=== PATIENT | female | born 1955 | race Caucasian/White ===

== ENCOUNTER 2018-06-01 09:53 | Inpatient (IN) ==
[2018-06-01] MEDS ORDERED: NS 1,000 ML IV ONE ×2 (10:10→16:46)
--- NOTE | 2018-06-01 10:10 | EKG Report ---
Test Performed on : 06/01/2018 10:07:44 AM Test Reason : AMS Blood Pressure : / mmHG Vent. Rate : 122 BPM Atrial Rate : 122 BPM P-R Int : 148 ms QRS Dur : 070 ms QT Int : 342 ms P-R-T Axes : 074 -03 049 degrees QTc Int : 487 ms Sinus tachycardia. with premature supraventricular complexes. and fusion complexes Possible Left atrial enlargement Borderline ECG No previous ECGs available Unconfirmed Result
[2018-06-01] MEDS ORDERED: ATIVAN IV ONE ×2 (10:19→14:16)
[2018-06-01] MEDS ORDERED: M.V.I.-12 10 ML, FOLIC ACID 1 MG, MAGNESIUM SULFATE 1 GM, THIAMINE 100 MG in NS 1,000 ML IV ONE (10:19)
[2018-06-01] MEDS ORDERED: ZOFRAN IV ONE (10:26)
--- NOTE | 2018-06-01 10:29 | Diag Imaging Result Doc PS360 ---
EXAM: CHEST-1 VIEW HISTORY: ams TECHNIQUE: Chest single view COMPARISON: 10/13/2013 FINDINGS: The lungs are well expanded. The heart is not enlarged. The vessels are not distended. There are no infiltrates. No effusion identified. IMPRESSION: Negative exam. Electronically signed by Naman Franks 06/01/2018 10:27 AM
[2018-06-01 10:41] LABS: BASO# 0.04 X1000 (0.0-0.2); BASO% 0.5 % (0.0-0.8); HEMOGLOBIN 15.2 g/dL (12.0-16.0); IMM GRAN# 0.03 X1000 (0.0-0.04); IMM GRAN% 0.3 % (0.0-0.5); LYMPH# 0.51 X1000 (1.2-3.4); LYMPH% 5.9 % (20.5-51.1); MCH 29.9 PG (27-31); MCHC 35.3 g/dL (33-37); MCV 84.6 FL (81-99); MONO# 0.25 X1000 (0.11-0.59); MONO% 2.9 % (1.7-9.3); MPV 8.8 FL (7.4-10.4); NEUT# 7.78 X1000 (1.4-6.5); NEUT% 90.4 % (42.2-75.2); PLT 293 X1000 (130-400); RBC 5.08 XMIL (4.2-5.4); RDW 16.4 % (11.5-14.5); WBC 8.61 X1000 (4.8-10.8)
[2018-06-01 10:51] LABS: AGAP 19; ALB/GLOB RATIO 1.4; ALBUMIN 4.9 g/dL (3.5-5.0); ALKALINE PHOSPHATASE 91 U/L (32-104); BUN 14 mg/dL (8-22); CALCIUM 9.5 mg/dL (8.8-10.2); CHLORIDE 98 mmol/L (98-107); COSMO 283; CREATININE 0.6 mg/dL (0.5-0.9); ESTIMATED GFR > 60; GLUCOSE 147 mg/dL (70-104); GOT 36 U/L (10-30); GPT 23 U/L (10-36); POTASSIUM 4.3 mmol/L (3.5-5.1); SODIUM 140 mmol/L (136-145); TCO2 23 mmol/L (25-35); TOTAL BILIRUBIN 0.88 mg/dL (0.20-1.00); TOTAL PROTEIN 8.5 g/dL (6.3-8.3)
[2018-06-01 11:22] LABS: ALLEN TEST YES; BE -0.1 mmoll (-3.0-3.0); BLOOD TYPE ARTERIAL; HCO3-(ACT) 24.7 mmoll (20.0-26.0); O2(CT) 20.1 mL/dL (15.0-23.0); O2HB 94.3 % (95.0-99.0); PCO2(98.6) 27 mmHg (35-45); PO2(98.6) 93 mmHg (60-100); SAMPLE BLOOD; SAO2 96.5 % (95.0-100.0); THB 15.1 g/dL (11.5-17.4); pH(98.6) 7.51 (7.35-7.45)
[2018-06-01 11:23] LABS: MODALITY ROOM AIR
[2018-06-01 12:08] LABS: URINE SOURCE CLEAN CATCH
[2018-06-01 12:17] LABS: BILIRUBIN URINE NEGATIVE (NEGATIVE); BLOOD URINE MODERATE (NEGATIVE); COLOR YELLOW; GLUCOSE URINE TRACE mg/dL (NEGATIVE); KETONE URINE 60 mg/dL (NEGATIVE); LEUKOCYTES URINE NEGATIVE (NEGATIVE); NITRITE URINE NEGATIVE (NEGATIVE); PH URINE 6.5; PROTEIN URINE >600 mg/dL (NEGATIVE); SP GRAVITY URINE 1.026; TURBIDITY URINE CLEAR (CLEAR); UROBILINOGEN URINE NORMAL (NORMAL)
[2018-06-01 12:21] LABS: UR EPITHELIAL CELLS <10 /HPF (<10); URINE BACTERIA NEGATIVE /HPF; URINE RBC <10 /HPF (<10); URINE WBC <10 /HPF (<10)
--- NOTE | 2018-06-01 13:50 | Diag Imaging Result Doc PS360 ---
EXAM: CT HEAD W/O CONTRAST 06/01/2018 HISTORY: tremor/confusion TECHNIQUE: This exam was performed using automated exposure control, adjustment of mA or kV according to patient size, and/or use of iterative reconstruction technique. COMMENT: There is no evidence of mass effect, bleed, abnormal extra-axial fluid collection, or hydrocephalus. The visualized paranasal sinuses are clear. The calvarium is intact. IMPRESSION: No evidence of acute intracranial disease. Electronically signed by Marc June 06/01/2018 1:48 PM
[2018-06-01] MEDS ORDERED: NS 500 ML IV ONE (16:06)
--- NOTE | 2018-06-01 17:48 | PROVIDER DOCUMENTATION ---
This chart was entered by Tiffani Kaur Scribe, acting as scribe for Jose Francisco Go MD. HPI-General Adult - General Chief Complaint: Altered Mental Status Stated Complaint: TREMORS, AMS/DR BROWN REF Time Seen by Provider: 06/01/18 10:06 Source: patient, family Allergies/Adverse Reactions: Patient Allergies Allergy/AdvReac Type Severity Reaction Status Date / Time No Known Allergies Allergy Unverified 04/27/12 15:53 Home Medications: Home Medication List Medication Instructions Recorded Confirmed Last Taken Type Fenofibrate [Tricor] 48 mg PO DAILY 04/28/12 04/28/12 Unknown History Metformin [Glucophage] 500 mg PO DAILY 04/28/12 04/28/12 Unknown History Paroxetine HCl [Paxil] 40 mg PO DAILY 04/28/12 04/28/12 Unknown History Chlordiazepoxide [Librium] 25 mg PO TID@0900,1500,2100 #0 04/30/12 Unknown Rx capsule - History of Present Illness -Gen Adult Nature of Presenting Problems: Patient is a 63 year old female who presents with tremors that have been present since last night. Patient's family states patient has been confused for the last week. Family also reports patient has possibly not been taking her daily medications. Report patient drinks 3 beers daily but has not within the last 3 days due to sleeping all the time. Denies weakness, numbness and tingling to all extremities. Location of Pain/Injury: reports: none Pain Radiation: reports: no radiation Quality of Pain: reports: none Severity: reports: mild Onset/Duration: reports: last night Timing: reports: still present Context/Activities at Onset: reports: light activity Associated Symptoms: reports: other (tremors) Similar Symptoms Previously?: Yes (present since last night ) Recently seen or treated by another doctor?: No Review of Systems - Adult - REVIEW OF SYSTEMS - ADULT Constitutional: reports: no symptoms reported. denies: chills, fever, fatique Eyes: reports: no symptoms reported Ears, Nose, Mouth & Throat: reports: no symptoms reported Cardiovascular: reports: no symptoms reported Respiratory: reports: no symptoms reported Gastrointestinal: reports: no symptoms reported Genitourinary: reports: no symptoms reported. denies: dysuria, frequency, hematuria Musculoskeletal: reports: back pain. denies: muscle aches, neck pain Integumentary: reports: no symptoms reported Neurological: reports: see HPI, tremors. denies: dizziness/vertigo, headache/migraines, numbness, paresthesia, seizure, syncope Psychiatric: reports: no symptoms reported Endocrine: reports: no symptoms reported Hematologic/Lymphatic: reports: no symptoms reported Allergic/Immunologic: reports: no symptoms reported All Other Systems: Reviewed and Negative Past History - Adult - PAST MEDICAL HISTORY-ADULT Review of Records: reports: Nursing Assessment Review, Medications Reviewed, Social history reviewed & non-contributory. Major Childhood Illnesses: reports: denies history Cardiovascular: reports: HTN Respiratory: reports: denies history Gastrointestinal: reports: denies history Obstetrical/Gynecological: reports: denies history Genitourinary: reports: denies history Musculoskeletal: reports: denies history Neurological: reports: denies history Psychiatric: reports: denies history Endocrine/Immune: reports: Diabetes Other Conditions: reports: denies history - PRIOR SURGERIES/PROCEDURES Surgical/Procedure History: reports: reviewed, not pertinent - IMMUNIZATION STATUS Childhood Immunizations: See Nurse Assessment Flu Vaccine: See Nurse Assessment - FAMILY HISTORY Family History: reviewed, not pertinent - SOCIAL HISTORY Smoking: cigarettes, greater than 1 pack/day Provider spent 3-5 mins advising pt. on dangers of tobacco.: Discussed manners to quit use, and f/u contacts for add'l counseling. Substance Use: alcohol Alcohol Use Frequency: every day Number of drinks per typical drinking period:: 3-4 drinks Living Situation: family Physical Exam-General - PHYSICAL EXAM-ADULT Initial Vital Signs Reviewed: Yes - CONSTITUTIONAL General Appearance: alert, no apparent distress. negative: lethargic, slow to respond - EYES Eyes: PERRL/EOMI - HEAD, EARS, NOSE, MOUTH & THROAT HENMT: normocephalic/atraumatic, moist mucous membranes - NECK Neck: non-tender, full range of motion, supple, normal inspection - RESPIRATORY Respiratory: chest non-tender, lungs clear, normal breath sounds. negative: c rackles, rhonchi - CARDIOVASCULAR Cardiovascular: normal peripheral pulses, tachycardia. negative: systolic murmur - GASTROINTESTINAL (ABDOMEN) Abdominal Exam: normal bowel sounds, non tender, soft. negative: guarding, rebound - MUSCULOSKELETAL Extremity: non-tender, normal inspection. negative: deformity, erythema - SKIN Integumentary: normal color, normal turgor, warm/dry. negative: cyanosis, ecchymosis, jaundice - NEUROLOGIC Neurologic: grossly normal. negative: aphasia, facial droop - PSYCHIATRIC Psych/Mental Status: normal mood/affect, oriented x 3. negative: paranoid, tear ful Progress - PLAN OF CARE/RESULTS Progress/Plan/Lab Results: Vital Signs - 8 hr 06/01/18 09:56 Temperature 98.1 F Pulse Rate 112 H Respiratory Rate 18 Blood Pressure 172/92 O2 Sat by Pulse Oximetry 97 Laboratory Results - last 24 hr 06/01/18 10:00 POC Glucose 131 H D Orders Category Date Time Status CHEST-1 VIEW [RAD] Stat Exams 06/01/18 10:09 Ordered ALCOHOL BLOOD Stat Lab 06/01/18 10:18 Ordered CBC WITH ELECTRONIC DIFF [HEME] Stat Lab 06/01/18 10:18 Ordered COMPREHENSIVE METABOLIC PANEL [CHEM] Stat Lab 06/01/18 10:18 Ordered TROPONIN T Stat Lab 06/01/18 10:18 Ordered UA [URINALYSIS] [URINALYSIS] Stat Lab 06/01/18 10:07 Uncollected 0.9% Sodium Chloride Inj [Ns] 1,000 ml Med 06/01/18 10:10 Active IV 999 mls/hr Banana Bag X1 Bag Over 1 Hour Med 06/01/18 10:19 Ordered Mvi [M.v.i.-12] 10 ml Folic Acid 1 mg Magnesium Sulfate 1 gm Thiamine 100 mg 0.9% Sodium Chloride Inj [Ns] 1,000 ml IV NOW EKG [EKG] Stat Ther 06/01/18 10:05 Draft EKG [EKG] Stat Ther 06/01/18 10:09 Ordered Result Diagrams: 06/01/18 10:15 06/01/18 10:15 - REASSESSMENT Reassessment #1 Time Reassessed: 13:03 Status: other (Dr. Go reassessed patient and patient's IV line was clamped off and patient had not received fluids yet.) - EKG 1 Time of EKG reading by physician:: 10:07 EKG Read and Signed by:: Jose Francisco oG EKG Interpretation (*Must complete 3 of following elements*): Abnormal (rhythm - sinus tachycardia with premature supraventricular complexes and fusion complexes) Rate: 122 [place] Interval: normal Comments: possible left atrial enlargement - XRAY 1 XRAY Study: Chest Impression: See EMR Report (Signed EXAM: CHEST-1 VIEW HISTORY: ams TECHNIQUE: Chest single view COMPARISON: 10/13/2013 FINDINGS: The lungs are well expanded. The heart is not enlarged. The vessels are not distended. There are no infiltrates. No effusion identified. IMPRESSION: Negative exam. Electronically signed by Naman Franks 06/01/2018 10:27 AM 06/01/18 1027 Interpreting Physician: Naman Franks MD Dictated Date/Time: 06/01/18 1027 cc: Jose Francisco Go MD; Devin Brown MD) - CT/MRI 1 CT Study: Head Impression: See EMR Report ( EXAM: CT HEAD W/O CONTRAST 06/01/2018 HISTORY: tremor/confusion TECHNIQUE: This exam was performed using automated exposure control, adjustment of mA or kV according to patient size, and/or use of iterative reconstruction technique. COMMENT: There is no evidence of mass effect, bleed, abnormal extra-axial fluid collection, or hydrocephalus. The visualized paranasal sinuses are clear. The calvarium is intact. IMPRESSION: No evidence of acute intracranial disease. Electronically signed by Marc June 06/01/2018 1:48 PM 06/01/18 1348 Interpreting Physician: Marc June MD Dictated Date/Time: 06/01/18 1346 cc: Jose Francisco Go MD; Devin Brown MD) - CONSULTS/PCP/HOSPITALIST Notification #1 *Consult/PCP/Hospitalist*: Dr. Hood Time Discussed: 17:46 Reason/Comments: Dr. Go consulted with Dr. Hood about patient Consult Disposition: Admit Departure - Departure Date of Disposition Decision: 06/01/18 Time of Disposition Decision: 16:49 DIAGNOSIS: Dehydration, Alcohol abuse Disposition: ADMITTED INPATIENT 09 Certified Medical Emergency: Emergent Condition: Fair Referrals and Follow-Ups: Devin Brown MD [Primary Care Provider] - - Critical Care Note This patient required my direct & personal management of CC.: No Attestation - Physician/ JAGDISH Attestation Patient care was provided by Advanced Practice Provider:: No The physician spent face to face time with patient:: Yes Advanced Practice Provider documentation review:: Supervising physician onsite and consulted in the evaluation and care of this patient. The physician did have a face to face encounter with the patient. This chart was documented by the indicated scribe, (Tiffani Kaur, Carm[place]) and accurately reflects the services I performed and decisions made by me, Jose Francisco Go MD, as attested by the provider's signature.
[2018-06-01 20:41] LABS: UR AMPHETAMINES QUAL NONE DETECTED (NONE DETECT); UR BARBITUATES QUAL NONE DETECTED (NONE DETECT); UR BENZODIAZEPIN QUAL PRESUMPTIVE POSITIVE (NONE DETECT); UR CANNABINOIDS QUAL NONE DETECTED (NONE DETECT); UR COCAINE QUAL NONE DETECTED (NONE DETECT); UR METHADONE QUAL NONE DETECTED (NONE DETECT); UR OPIATES QUAL NONE DETECTED (NONE DETECT); UR OXYCODONE QUAL NONE DETECTED (NONE DETECT); UR PCP QUAL NONE DETECTED (NONE DETECT)
[2018-06-01 20:46] LABS: MAGNESIUM 1.8 mg/dL (1.5-2.7); PHOSPHORUS 3.1 mg/dL (2.7-4.5)
--- NOTE | 2018-06-01 21:44 | HISTORY AND PHYSICAL ---
PRIMARY CARE PHYSICIAN: Dr. Martinez. CHIEF COMPLAINT: Shaking tremors for 1 day. HISTORY OF PRESENTING ILLNESS: 63-year-old female with a history of hypertension, diabetes mellitus type 2, and anxiety disorder had presented to the emergency department with 1-day history of having tremors and shaking symptoms. The patient seemed somewhat confused. Apparently, patient has a history of chronic alcoholism and her last drink was few days ago. The patient was also on Xanax for anxiety for years and apparently ran out of it about a week ago. She was seen in the ER. She seemed to have tremors and clinically it seemed that she was in alcohol withdrawal. Due to her presenting symptoms, she will require admission for further management. At the time of my examination, patient denied any headache, fever, chills, chest pain, shortness of breath or any weight changes but complained of shaking. PAST MEDICAL HISTORY: Includes hypertension, diabetes mellitus type 2, anxiety disorder. PAST SURGICAL HISTORY: None. ALLERGIES: No known drug allergies. CURRENT MEDICATIONS: Include Librium 25 mg p.o. t.i.d., Tricor 48 mg p.o. daily, metformin 500 mg p.o. daily, Paxil 40 mg p.o. daily. SOCIAL HISTORY: Twenty pack years history of smoking. Admits to drinking beer and vodka daily. Denies any illicit drug use. FAMILY HISTORY: No history of coronary disease. REVIEW OF SYSTEMS: Fourteen point review of systems is as in HPI. Other systems negative. PHYSICAL EXAMINATION: GENERAL: Cooperative, friendly female. She is resting more comfortably now. VITAL SIGNS: Temperature 98.1 degrees, pulse 112, respiration 18, blood pressure 172/92. HEENT: Atraumatic, normocephalic. Extraocular movements intact. PERRLA. NECK: No masses. CHEST: Clear to auscultation. CARDIOVASCULAR: Regular rate and rhythm. ABDOMEN: Soft. Positive bowel sounds. EXTREMITIES: No edema. NEUROLOGIC: She is awake, alert, oriented x2. : No bladder distention. SKIN: Warm. LABORATORIES AND STUDIES: Sodium 140, potassium 4.3, chloride 98, CO2 is 23, BUN is 14, creatinine 0.6, glucose is 147. WBC 8.61, hemoglobin 15.2, hematocrit 43.0, platelets 293,000. ASSESSMENT: This is a 63-year-old female with a history of hypertension, diabetes mellitus type 2, and chronic alcoholism who had presented to emergency department with 1-day history of having tremors and shaking sensation. She apparently quit drinking alcohol about several days ago and also had ran out of her Xanax about a week ago. I seemed that clinically she was in withdrawal. Subsequently she will need admission for further management. 1. Alcohol/Xanax withdrawal. 2. Hypertension. 3. Diabetes mellitus type 2. PLAN: 1. We will admit patient to medical floor with telemetry. 2. Continue with supportive treatment with IV fluids, antiemetics, and benzodiazepines as needed. 3. We will monitor blood pressure closely. 4. Put patient on glycemic protocol and monitor blood glucose. 5. Put patient on DVT prophylaxis with SCDs. 6. We will continue to follow and reassess. Make further recommendation based on patient's clinical course. cc: Shakir Méndez MD
[2018-06-01] MEDS ORDERED: ATIVAN IV PRN (23:02)
[2018-06-01] MEDS ORDERED: ZOFRAN IV PRN (23:02)
[2018-06-01] MEDS ORDERED: SODIUM CHLORIDE 0.9% INJ SCH (23:15)
[2018-06-01] MEDS: TYLENOL PO PRN (23:24)
[2018-06-01] MEDS: LIBRIUM PO SCH (23:24)
[2018-06-01] MEDS: NS 1,000 ML IV SCH (23:24)
[2018-06-01] MEDS: PROTONIX IV SCH (23:24)
[2018-06-02 07:22] LABS: BASO# 0.03 X1000 (0.0-0.2); BASO% 0.5 % (0.0-0.8); EOS# 0.01 X1000 (0.0-0.7); EOS% 0.2 % (0.0-10.0); HEMATOCRIT 38.6 % (37.0-47.0); HEMOGLOBIN 13.6 g/dL (12.0-16.0); LYMPH# 1.14 X1000 (1.2-3.4); MCH 30.6 PG (27-31); MCHC 35.2 g/dL (33-37); MCV 86.7 FL (81-99); MONO# 0.69 X1000 (0.11-0.59); MONO% 10.9 % (1.7-9.3); NEUT# 4.48 X1000 (1.4-6.5); NEUT% 70.4 % (42.2-75.2); PLT 241 X1000 (130-400); RBC 4.45 XMIL (4.2-5.4); RDW 16.4 % (11.5-14.5); WBC 6.35 X1000 (4.8-10.8)
[2018-06-02 07:59] LABS: AGAP 9; BUN 15 mg/dL (8-22); CALCIUM 8.8 mg/dL (8.8-10.2); CHLORIDE 99 mmol/L (98-107); COSMO 271; CREATININE 0.5 mg/dL (0.5-0.9); ESTIMATED GFR > 60; GLUCOSE 94 mg/dL (70-104); POTASSIUM 3.7 mmol/L (3.5-5.1); SODIUM 135 mmol/L (136-145); TCO2 27 mmol/L (25-35)
[2018-06-02] MEDS: PRINZIDE 20/12.5MG PO SCH (09:16)
[2018-06-02] MEDS: PAXIL PO SCH (09:16)
[2018-06-02] MEDS: LIBRIUM PO SCH ×3 (09:25→21:51)
[2018-06-02] MEDS: NS 1,000 ML IV SCH ×2 (09:26→23:33)
[2018-06-02] MEDS: TYLENOL PO PRN (14:36)
--- NOTE | 2018-06-02 16:32 | PROGRESS NOTE ---
DATE: 06/02/2018 SUBJECTIVE: Patient is resting in bed. She is tremulous. OBJECTIVE: Vital signs: Temperature 98.7 degrees, pulse 98, respiratory rate 17, blood pressure 160/80, oxygen saturation is 96%. HEENT: Atraumatic, normocephalic. Cardiovascular: S1, S2. Respiratory: Has evidence of good entry bilaterally. Abdomen: Soft, nontender. No masses felt. Extremities: No evidence of significant edema. Central Nervous System: The patient is awake, alert, and experiencing tremors. LABORATORY DATA: WBC 6.35, hematocrit is 38.6, with a platelet count of 241,000. Sodium is 135, potassium 3.7, chloride 99, bicarb 27, BUN is 15, creatinine 0.5. ASSESSMENT AND PLAN: 1. Delirium tremens/alcohol withdrawal. Maintain patient on DT prophylaxis along with time and also folic acid. Check the patient's magnesium and phosphorus level, and replace those if needed. 2. Hypertension. Continue current antihypertensive regimen. 3. Diabetes mellitus. Maintain patient's blood sugar monitoring as well as sliding scale insulin. Check hemoglobin A1c level. 4. Deep vein thrombosis prophylaxis. SCDs. cc: Braydon Trevizo MD
[2018-06-02] MEDS: PROTONIX IV SCH (23:34)
[2018-06-03 07:44] LABS: BASO# 0.05 X1000 (0.0-0.2); BASO% 1.1 % (0.0-0.8); EOS# 0.05 X1000 (0.0-0.7); EOS% 1.1 % (0.0-10.0); HEMATOCRIT 39.4 % (37.0-47.0); HEMOGLOBIN 13.9 g/dL (12.0-16.0); LYMPH# 1.14 X1000 (1.2-3.4); LYMPH% 24.2 % (20.5-51.1); MCH 30.4 PG (27-31); MCHC 35.3 g/dL (33-37); MCV 86.2 FL (81-99); MONO# 0.59 X1000 (0.11-0.59); MONO% 12.5 % (1.7-9.3); MPV 9.5 FL (7.4-10.4); NEUT# 2.88 X1000 (1.4-6.5); NEUT% 61.1 % (42.2-75.2); PLT 240 X1000 (130-400); RBC 4.57 XMIL (4.2-5.4); RDW 15.7 % (11.5-14.5); WBC 4.71 X1000 (4.8-10.8)
[2018-06-03 08:03] LABS: AGAP 13; BUN 13 mg/dL (8-22); CALCIUM 8.8 mg/dL (8.8-10.2); CHLORIDE 104 mmol/L (98-107); COSMO 281; CREATININE 0.5 mg/dL (0.5-0.9); ESTIMATED GFR > 60; GLUCOSE 123 mg/dL (70-104); POTASSIUM 3.1 mmol/L (3.5-5.1); SODIUM 140 mmol/L (136-145); TCO2 23 mmol/L (25-35)
[2018-06-03] MEDS: PAXIL PO SCH (09:22)
[2018-06-03] MEDS: PRINZIDE 20/12.5MG PO SCH (09:22)
[2018-06-03] MEDS: LIBRIUM PO SCH ×2 (09:22→14:44)
[2018-06-03] MEDS ORDERED: KLOR-CON PO ONE (14:12)
[2018-06-03] MEDS ORDERED: MEDROL DOSEPAK PO SCH (14:15)
[2018-06-03] MEDS ORDERED: LIBRIUM PO SCH (14:30)
[2018-06-03 16:02] VITALS: BP 147/87
--- NOTE | 2018-06-03 22:23 | DISCHARGE SUMMARY ---
ADMISSION DATE: 06/01/2018 DISCHARGE DATE: 06/03/2018 PRINCIPAL DIAGNOSIS: Alcohol withdrawal. SECONDARY DIAGNOSES: 1. Chronic alcoholism. 2. Hypertension. 3. Type 2 diabetes mellitus. 4. Hypokalemia. 5. Hematuria. DISCHARGE MEDICATIONS: Include the following, Paxil 40 mg p.o. daily, omeprazole 1 p.o. daily, lisinopril-HCTZ 20-25, one p.o. daily, Librium 5 mg p.o. twice a day, potassium chloride 20 mEq p.o. daily for 3 days. PROCEDURES DONE DURING THIS HOSPITAL STAY: Head CT 06/01/2018. HOSPITAL COURSE: Ms. Rizwana Murphy is a 63-year-old female, she does have a history of chronic alcoholism and presents to the hospital because of tremors. The patient was thought to have alcohol withdrawal. She was maintained on benzodiazepines. Potassium level was noted to be low and that was corrected. Noted to have blood in urine and I will get her to follow up with Urology in the outpatient. DISCHARGE PHYSICAL EXAMINATION: Vital signs: During my evaluation today, vital signs as follows, temperature 98.4 degrees, pulse 81, respiratory rate 16, blood pressure 154/90, oxygen saturation 99%. HEENT: Atraumatic, normocephalic. Cardiovascular: S1, S2. Respiratory system: Has evidence of good air entry bilaterally. Abdomen: Soft, nontender. No masses felt. Extremities: No evidence of edema. Central nervous system: Awake with slight tremors noted. LABORATORY DATA: WBC is 4.71, hematocrit is 39.4 with a platelet count of 240,000. Sodium is 140, potassium 3.1, chloride is 104, bicarb 23, BUN is 13, creatinine 0.5. Urinalysis notes blood in urine. DISCHARGE PLAN: Discharge home today. Patient will need to abstain from alcohol. She will need to take her discharge medications as noted above. Follow up with her primary care physician to recheck her potassium level, which was slightly low at the time of discharge. She will also need to follow up with Dr. Brown, urologist, with regards to hematuria. cc: Braydon Trevizo MD
== END 2018-06-03 16:18 | disposition home or self-care (01) | DRG 897 ==
LOC: ED 09:53 → 3N 22:29 → SUATTDRO 22:29 → 3N 22:56
PROVIDERS: ATTEND Internal Medicine
CPT/HCPCS: 70450; 71010; 71045; 80048; 80053; 80101; 80301; 80307; 80320; 80324; 80345; 80346; 80353; 80358; 80361; 80365; 81001; 82055; 82805; 82948; 83735; 83992; 84100; 84484; 85025; 93005; 96361; 96365; 96366; 96375; 96376; 99285; A9270; C9113; G0431; G0434; G0479; G0480; G6040; J2060; J2405; J3411; J3475; J7030; J7040; S0164; XXXXX